=== PATIENT | male | born 1990 | race Caucasian/White ===

== ENCOUNTER 2018-04-27 21:00 | Observation (INO) | payer OTHER ==
[2018-04-27] MEDS ORDERED: FAMOTIDINE 20 MG TAB GTB (22:00)
[2018-04-27] MEDS ORDERED: FUROSEMIDE 40 MG TAB GTB (22:00)
[2018-04-27] MEDS ORDERED: LEVETIRACETAM (100 MG/ML) 5ML CUP GTB (22:00)
[2018-04-27] MEDS ORDERED: NYSTATIN 30 GM POWDER BTL TOP (22:00)
[2018-04-27] MEDS ORDERED: LACTOBACILLUS RHAMNOSUS CAP GTB (22:00)
[2018-04-27] MEDS ORDERED: HEPARIN 5,000 UNIT/1 ML VIAL SC (22:00)
[2018-04-27] MEDS ORDERED: ACETAMINOPHEN 650MG/20.3ML CUP GTB ×2 (22:00)
[2018-04-27] MEDS ORDERED: VALPROIC ACID LIQUID CUP 250 MG/5 ML CUP GTB (22:00)
[2018-04-27] MEDS ORDERED: OCULAR LUBRICANT 3.5 GM OPH OINT BOTH EYES (22:00)
[2018-04-27] MEDS ORDERED: LORAZEPAM 1 MG TAB GTB (22:30)
[2018-04-27] MEDS ORDERED: ALBUTEROL/IPRATROPIUM (NEB) 3 ML AMP INH (22:30)
[2018-04-28] MEDS ORDERED: DOCUSATE SODIUM 100 MG CAP PO (00:30)
[2018-04-28] MEDS ORDERED: ONDANSETRON 4 MG INJ IV (00:30)
[2018-04-28] MEDS ORDERED: NACL 0.9% 3 ML SYG IV (00:30)
[2018-04-28] MEDS ORDERED: NITROGLYCERIN (SL) 0.4 MG TAB SL (00:30)
[2018-04-28] MEDS ORDERED: ACETAMINOPHEN 325 MG TAB PO (00:30)
[2018-04-28] MEDS ORDERED: BISACODYL (EC) 5 MG TAB PO (00:30)
[2018-04-28 00:51] LABS: ADD MAN DIFF? NO; BASOPHIL # 0.1 10^3/ul (0.0-0.1); BASOPHILS % 0.7 % (0.0-2.0); EOSINOPHILS # 0.3 10^3/ul (0.0-0.5); EOSINOPHILS % 3.2 % (0.0-7.0); HEMATOCRIT 41.7 % (42.0-52.0); HEMOGLOBIN 13.4 g/dl (14.0-18.0); LYMPHOCYTES # 4.1 10^3/ul (0.8-2.9); LYMPHOCYTES % 39.1 % (15.0-51.0); MEAN CORPUSCULAR HEMOGLOBIN 26.6 pg (29.0-33.0); MEAN CORPUSCULAR HGB CONC 32.1 g/dl (32.0-37.0); MEAN CORPUSCULAR VOLUME 82.7 fl (82.0-101.0); MEAN PLATELET VOLUME 10.7 fl (7.4-10.4); MONOCYTE # 0.7 10^3/ul (0.3-0.9); MONOCYTES % 6.4 % (0.0-11.0); NEUTROPHIL # 5.3 10^3/ul (1.6-7.5); NEUTROPHILS % 49.8 % (39.0-77.0); PLATELET COUNT 293 10^3/UL (140-415); RED BLOOD COUNT 5.04 10^6/ul (4.70-6.10)
[2018-04-28 00:51] LABS: WHITE BLOOD COUNT 10.6 10^3/ul (4.8-10.8)
[2018-04-28] MEDS ORDERED: ALBUTEROL/IPRATROPIUM (NEB) 3 ML AMP HHN (01:00)
[2018-04-28 01:11] LABS: ALANINE AMINOTRANSFERASE 46 IU/L (13-69); ALBUMIN 4.2 g/dl (3.3-4.9); ALBUMIN/GLOBULIN RATIO 1.16; ALKALINE PHOSPHATASE 83 IU/L (42-121); ANION GAP 11 (5-13); ASPARTATE AMINO TRANSFERASE 34 IU/L (15-46); BILIRUBIN,INDIRECT 0.3 mg/dl (0-1.1); BILIRUBIN,TOTAL 0.3 mg/dl (0.2-1.3); BLOOD UREA NITROGEN 17 mg/dl (7-20); CALCIUM 9.7 mg/dl (8.4-10.2); CARBON DIOXIDE 22 mmol/L (21-31); CHLORIDE 108 mmol/L (97-110); CREATININE 0.78 mg/dl (0.61-1.24); Estimated GFR > 60 mL/min (>60); GLUCOSE 102 mg/dl (70-220); MAGNESIUM 2.1 mg/dl (1.7-2.5); POTASSIUM 4.5 mmol/L (3.5-5.1); SODIUM 141 mmol/L (135-144); TOTAL PROTEIN 7.8 g/dl (6.1-8.1)
[2018-04-28 01:13] LABS: CHOLESTEROL 193 mg/dl (100-200)
[2018-04-28 01:13] LABS: CREATINE KINASE 89 IU/L (23-200); HDL CHOLESTEROL 32 mg/dl (28-63); LDL CHOLESTEROL,CALCULATED 120 mg/dl; TRIGLYCERIDES 204 mg/dl (0-149)
[2018-04-28 01:16] LABS: HEMOGLOBIN A1C 5.7 % (0-5.9)
[2018-04-28 01:34] LABS: CK INDEX 0.6; CK-MB 0.53 ng/ml (0.0-2.4); TROPONIN-I < 0.012 ng/ml (0.000-0.120)
[2018-04-28] MEDS ORDERED: LEVALBUTEROL (NEB) 1.25 MG/0.5 ML AMP HHN (03:00)
[2018-04-28] MEDS: KETOROLAC 15 MG INJ IV ×2 (05:33→11:01)
[2018-04-28 06:55] LABS: CK-MB 0.55 ng/ml (0.0-2.4); TROPONIN-I < 0.012 ng/ml (0.000-0.120)
[2018-04-28 06:59] LABS: CK INDEX 0.7; CREATINE KINASE 83 IU/L (23-200)
[2018-04-28] MEDS ORDERED: FLUCONAZOLE 200 MG TAB GTB (09:00)
[2018-04-28] MEDS: BENAZEPRIL 40 MG TAB PO (09:27)
[2018-04-28] MEDS: HYDROCHLOROTHIAZIDE 25 MG TAB PO (09:28)
[2018-04-28] MEDS: FISH OIL 1,000 MG CAP PO (11:00)
[2018-04-28] MEDS: hydrALAzine 20 MG INJ IV (12:10)
== END 2018-04-28 15:10 | disposition home or self-care (01) ==
LOC: TEL 21:00
DX: M94.0 Chondrocostal junction syndrome [Tietze] (principal); I10 Essential (primary) hypertension; E78.00 Pure hypercholesterolemia, unspecified; E66.9 Obesity, unspecified; Z68.37 Body mass index [BMI] 37.0-37.9, adult; J06.9 Acute upper respiratory infection, unspecified
CPT/HCPCS: 71045; 80053; 80061; 82306; 82550; 82553; 83036; 83735; 84443; 84484; 85025; 93306; 99217; G0378

== ENCOUNTER 2018-08-07 12:42 | Emergency (ER) | payer OTHER ==
[2018-08-07 14:34] LABS: TROPONIN-I < 0.012 ng/ml (0.000-0.120)
== END 2018-08-07 15:06 | disposition home or self-care (01) ==
LOC: FTE 12:42
DX: R07.89 Other chest pain (principal); I10 Essential (primary) hypertension
CPT/HCPCS: 36415; 71045; 84484; 93005; 99285-25